=== PATIENT | female | born 1955 | race Asian ===

== ENCOUNTER 2016-10-25 06:28 | Day surgery (SDC) | payer OTHER ==
[2016-10-24 17:18] VITALS: BMI 21.6
[2016-10-25] VITALS (12 sets, daily range): BP systolic 111–146; BP diastolic 55–67; PULSE 70–94; RESP 17–18; Ht 160 cm; Wt 54.5 kg
[~2016-10-25] VITALS: Ht 160 cm; Wt 54.5 kg
[2016-10-25] MEDS ORDERED: CEFAZOLIN 1 GM INJ ONE (07:00)
--- NOTE | 2016-10-25 07:01 | RADRPT ---
PROCEDURE: Chest Radiograph. CLINICAL INDICATION: Preop. Right facial mass. TECHNIQUE: Single frontal chest radiograph. COMPARISON: None available FINDINGS: The cardiomediastinal silhouette is within normal limits. No infiltrate or effusion is seen. Th e bones are intact. IMPRESSION: 1. Unremarkable chest radiograph. RPTAT: HJ[facility] .Matt Vaughn MD, MD Date Time Electronically viewed and signed by .Matt Vaughn MD, on 10/25/2016 07:00 .B/
[2016-10-25] MEDS ORDERED: MIRT15TA PO (07:08)
[2016-10-25] MEDS ORDERED: DIPH25CA6 PO (07:08)
[2016-10-25] MEDS ORDERED: PALI1.5T IM (07:08)
[2016-10-25] MEDS ORDERED: PROP10TA6 PO (07:08)
--- NOTE | 2016-10-25 07:22 | HPN ---
Date/Time of Note Date/Time of Note DATE: 10/25/16 TIME: 07:22 Interval H&P Admission Note Pt. seen H&P reviewed: No system changes MARYAM URIOSTEGUI MD Oct 25, 2016 07:22
[2016-10-25] MEDS ORDERED: GELATIN SIZE 100 SPONGE ONE (07:34)
[2016-10-25] MEDS ORDERED: LIDOCAINE 1% (MPF) 30 ML INJ ONE (07:34)
[2016-10-25] MEDS ORDERED: HEPARIN 1000 UNITS/ML 10 ML INJ ONE (07:35)
[2016-10-25] MEDS ORDERED: THROMBIN 5000 UNIT VIAL ONE (07:35)
[2016-10-25] MEDS ORDERED: HEPARIN 1000 UNITS/ML 10 ML INJ IRR ONE (07:45)
[2016-10-25] MEDS ORDERED: LIDOCAINE 1% (MPF) 30 ML INJ INJ ONE (07:45)
[2016-10-25] MEDS ORDERED: ROPIVACAINE 0.5 % 30 ML VIAL ONE (07:52)
[2016-10-25] MEDS ORDERED: LIDOCAINE 2%/EPI 30 ML INJ ONE (07:52)
[2016-10-25] MEDS ORDERED: MIDAZOLAM 1 MG/ML 2 ML INJ ONE (07:53)
[2016-10-25] MEDS ORDERED: FENTAnyl 50 MCG/ML VIAL ONE (07:53)
[2016-10-25] MEDS ORDERED: MEPERIDINE 25 MG INJ IV PRN (09:00)
[2016-10-25] MEDS ORDERED: DIPHENHYDRAMINE 50 MG INJ IV PRN (09:00)
[2016-10-25] MEDS ORDERED: FENTAnyl 50 MCG/ML VIAL IV PRN (09:00)
[2016-10-25] MEDS ORDERED: ONDANSETRON 4 MG INJ IV PRN (09:00)
--- NOTE | 2016-10-25 09:04 | SIPON ---
Date/Time of Note Date/Time of Note DATE: 10/25/16 TIME: 09:03 Operative Report Preoperative Diagnosis ESRD Postoperative Diagnosis same Operation/Procedure Performed L arm brachiocepahlic AVF creation Anesthesia Type: other Estimated Blood Loss: minimal Transfusion Required: no Specimen: none Grafts/Implants: none Complications: no MARYAM URIOSTEGUI MD Oct 25, 2016 09:04
--- NOTE | 2016-10-25 13:36 | OPR ---
DATE OF OPERATION: 10/25/2016 PREOPERATIVE DIAGNOSIS: End-stage renal disease. POSTOPERATIVE DIAGNOSIS: End-stage renal disease. OPERATIVE PROCEDURE: Creation of left arm arteriovenous fistula. SURGEON: Jarad Campbell MD ANESTHESIA: Scalene block. ESTIMATED BLOOD LOSS: Minimal. COMPLICATIONS: There were no intraprocedural complications. INDICATIONS: This is a 60-year-old woman with end-stage renal disease on dialysis via a Perma-Cath. She is right handed. I brought her in today for creation of a left arm AV fistula. OPERATION PERFORMED: Patient was brought to the operating room, placed on the table in a supine position. The left arm was prepped and draped in the usual sterile fashion. After the block was placed by the anesthesiologist, I had already mapped the vein on the arm. It showed a good cephalic vein from the elbow up to the shoulder and a good brachial artery at the elbow. I made an incision across the antecubital crease. I carefully dissected out the cephalic vein down into the forearm where it divided. I ligated the 2 branches. I ligated them distally with surgical clips and divided them. I cut the septum between the 2 branches, creating a mcdowell at the end of the vein. I then cut the connective tissue overlying the brachial artery pulse. I clamped the brachial artery proximally and distally. It was a real soft artery; it went into spasm, quite a bit of spasm, but it was a good size before it spasmed. I made an 8 mm long anterior arteriotomy, then anastomosed the end of the vein to the side of the artery using 6-0 Prolene suture in a running standard vascular surgical fashion. I then removed the clamps. The vein dilated up nicely. There was a soft thrill. The hand was warm and pink. I looked at the fingers. Radial pulse was not palpable, but I could see a lot of spasm in the artery. There was good hemostasis. I closed the skin incision in 2 layers using an inner layer of 3-0 Vicryl and an outer layer of 4-0 Monocryl subcuticular suture. Sterile dressing was applied. The patient was then transferred to recovery room in stable condition. She tolerated the procedure well without any complications. Dictated By: Jarad Campbell MD /roberto/[facility] /Document#: [id number]
--- NOTE | 2016-10-25 17:13 | RADRPT ---
Vent Rate: 70 bpm RR Interval: 0 msec HI Interval: 182 msec QRS Duration: 78 msec QT Interval: 444 msec QTC Interval: 479 msec P-R-T Buckley: 61 - 65 - 75 degrees Normal sinus rhythm RSR apos; orattern in V1 suggests right ventricular conduction delay Prolonged QT Abnormal ECG Electronically Signed By: Darian Tang [id number]
== END 2016-10-25 11:00 | disposition home or self-care (01) ==
LOC: SDS 06:28
PROVIDERS: ATTEND Surgery Vascular Surgery
DX: I12.0 Hypertensive chronic kidney disease with stage 5 chronic kidney disease or end stage renal disease (principal); N18.6 End stage renal disease
CPT/HCPCS: 36821; 71010; 84132; 93005; J0690; J1644; J2250; J2795; J3010; Z7512; Z7610; C1725

== ENCOUNTER 2016-11-23 09:01 | Emergency (ER) | payer OTHER ==
[~2016-11-23] VITALS: Wt 54.0 kg
[~2016-11-23 09:01] MED LIST: DIPH25CA6 PO; MIRT15TA PO; PALI1.5T IM; PROP10TA6 PO
[2016-11-23] MEDS ORDERED: HYDROCODONE/APAP (5/325) TAB PO ONE (09:30)
--- NOTE | 2016-11-23 10:29 | ERD ---
ER Documentation Chief Complaint Date/Time DATE: 11/23/16 TIME: 10:27 Chief Complaint Left arm swelling HPI This is a 61-year-old who had a left AV shunt placed 1 month ago. Ever since it was placed the patient complained of numbness to her left middle and ring fingertips. She also has some diffuse aching sensation in her left forearm. She says that her hand has been slightly cool ever since then. They have followed up with her doctor who did the surgery he said everything is fine and this will take some time to heal. They are here today because she thinks her arm is swollen a little bit. No shortness of breath or chest pain ROS All systems reviewed and are negative except as per history of present illness. Medications Home Meds Reported Medications Aripiprazole* (Abilify*) 5 Mg Tab, 5 MG PO DAILY, #30 TAB 11/23/16 Diphenhydramine Hcl* (Diphenhydramine Hcl*) 25 Mg Capsule, 25 MG PO Q6 Y for ITCHING, CAP 10/25/16 Mirtazapine* (Remeron*) 15 Mg Tablet, 15 MG PO HS, TAB 10/25/16 Discontinued Reported Medications Propranolol Hcl* (Propranolol Hcl*) 10 Mg Tablet, 10 MG PO DAILY, TAB 10/25/16 Paliperidone (Invega) 1.5 Mg Tab.er.24, 78 MG IM q month, TAB 10/25/16 Allergies Allergies: Coded Allergies: No Known Allergy (Unverified , 11/23/16) PMhx/Soc History of Surgery: No Anesthesia Reaction: No Hx Neurological Disorder: No Hx Respiratory Disorders: No Hx Cardiac Disorders: No Hx Psychiatric Problems: Yes (SCHIZOPHRENIA) Hx Miscellaneous Medical Probl: No Hx Alcohol Use: No Hx Substance Use: No Hx Tobacco Use: No Smoking Status: Current every day smoker FmHx Family History: No coronary disease Physical Exam Vitals Vital Signs Date Time Temp Pulse Resp B/P Pulse Ox O2 Delivery O2 Flow Rate FiO2 11/23/16 09:08 98.1 72 18 135/64 99 Physical Exam Const: Well-developed, well-nourished Head: Atraumatic, normocephalic Eyes: Normal Conjunctiva, PERRLA, EOMI, normal sclera, no nystagmus ENT: Normal External Ears, Nose and Mouth, moist mucus membranes. Neck: Full range of motion. No meningismus, no lymphadenopathy. Resp: Clear to auscultation bilaterally, no wheezing, rhonchi, rales Cardio: Regular rate and rhythm, no murmurs, S1 S2 present Abd: Soft, non tender x 4, non distended. Normal bowel sounds, no guarding or rebound, no pulsitile abdominal masses or bruits Skin: No petechiae or rashes, no ecchymosis , no maculopapular rash Back: No midline or flank tenderness Ext: No cyanosis, or edema, FROM x 4, normal inspection, neurovascularly intact x 4, the left arm AV shunt has a palpable thrill there is no noticeable swelling, no erythema, digits are slightly cooler than the right hand, Refill less than 2 seconds in her left hand Neur: Awake and alert, STR 5/5 x 4, sensation intact x 4, no focal findings, cerebellum intact Psych: Normal Mood and Affect Results 24 hrs Current Medications Medications (Trade) Dose Ordered Sig/Sharona Route PRN Reason Start Time Stop Time Status Last Admin Dose Admin Acetaminophen/ Hydrocodone Bitart ([place] (5/325)) 1 tab ONCE ONCE PO 11/23/16 09:30 11/23/16 09:31 DC 11/23/16 09:43 Procedures/MDM PROCEDURE: Right upper extremity AV fistula ultrasound. CLINICAL INDICATION: Left upper extremity pain. Left upper extremity fistula. TECHNIQUE: Henriquez-scale and color Doppler images of a left upper extremity dialysis fistula were obtained. COMPARISON: None available FINDINGS: Patent left upper extremity dialysis fistula is identified. Velocities are as follows: Arterial anastomosis 202 cm/s Proximal fistula 423 cm/s Mid fistula 163 cm/s Mid - distal fistula 73 cm/s Distal outflow vein 147 cm/s Inflow artery 147 cm/s IMPRESSION: Patent left upper extremity dialysis fistula. Elevated velocity in the proximal fistula, possibly indicating stenosis. RPTAT: AA .Davey Randle MD, Date Time Electronically viewed and signed by .Davey Randle MD, MD on 11/23/2016 11:29 .P/ CC: GRACIELA CHEEMA DO Spoke with Dr. Porter of vascular surgery review the ultrasound. He said the patient to follow-up in the office on Friday Departure Diagnosis: Primary Impression: AV fistula stenosis Encounter type: initial encounter Qualified Code: T82.858A - Arteriovenous fistula stenosis, initial encounter Additional Impression: Postoperative pain Condition: Stable GRACIELA CHEEMA DO Nov 23, 2016 10:29
[2016-11-23] MEDS ORDERED: ARIP5TAB7 PO (11:26)
--- NOTE | 2016-11-23 11:29 | RADRPT ---
PROCEDURE: Right upper extremity AV fistula ultrasound. CLINICAL INDICATION: Left upper extremity pain. Left upper extremity fistula. TECHNIQUE: Henriquez-scale and color Doppler images of a left upper extremity dialysis fistula were obt ained. COMPARISON: None available FINDINGS: Patent left upper extremity dialysis fistula is identified. Velocities are as follows: Arterial anastomosis 202 cm/s Proximal fistula 423 cm/s Mid fistula 163 cm/s Mid - distal fistula 73 cm/s Distal outflow vein 147 cm/s Inflow artery 147 cm/s IMPRESSION: Patent left upper extremity dialysis fistula. Elevated velocity in the proximal fistula, possibly indicating stenosis. RPTAT: AA .Davey Randle MD, MD Date Time Electronically viewed and signed by .Davey Randle MD, MD on 11/23/2016 11:29 .P/
[2016-11-23] MEDS ORDERED: HYDR-906 PO (12:08)
[2016-11-23 12:21] VITALS: BP 149/70; PULSE 69; RESP 17; TEMP 97.8
== END 2016-11-23 12:22 | disposition home or self-care (01) ==
LOC: E/R 09:01
DX: T82.858A Stenosis of other vascular prosthetic devices, implants and grafts, initial encounter (principal); G89.18 Other acute postprocedural pain; F17.210 Nicotine dependence, cigarettes, uncomplicated; Y82.8 Other medical devices associated with adverse incidents
CPT/HCPCS: 93931; Z7502; Z7610; 99283

== ENCOUNTER 2017-01-27 07:41 | Day surgery (SDC) | payer OTHER ==
[~2017-01-27] VITALS: Ht 157.5 cm; Wt 50.1 kg
[~2017-01-27 07:41] MED LIST changes: +ARIP5TAB7 PO; +HYDR-906 PO; -PALI1.5T IM; -PROP10TA6 PO
[2017-01-27 08:18] VITALS: Ht 157.5 cm; Wt 50.1 kg
[2017-01-27 08:22] VITALS: BP 134/64; PULSE 79; RESP 16
--- NOTE | 2017-01-27 08:28 | HPN ---
Date/Time of Note Date/Time of Note DATE: 01/27/17 TIME: 08:28 Interval H&P Admission Note Pt. seen H&P reviewed: No system changes MARYAM URIOSTEGUI MD Jan 27, 2017 08:28
--- NOTE | 2017-01-27 09:31 | SIPON ---
Date/Time of Note Date/Time of Note DATE: 01/27/17 TIME: 09:30 Operative Report Preoperative Diagnosis L arm AVF non maturing Postoperative Diagnosis same Operation/Procedure Performed L arm AVF gram, PTV cephalic vein 6 x 100, coil embolization of large cephalic vein collateral (3 mm x 5 cm Tanja) Surgeon see signature line surgeon's assistant none Anesthesia: other Estimated blood loss: none Transfusion Required none Specimen none Grafts/Implants none Complications none MARYAM URIOSTEGUI MD Jan 27, 2017 09:31
[2017-01-27 09:45] VITALS: BP 140/68; PULSE 77; RESP 17
--- NOTE | 2017-01-27 10:42 | OPR ---
DATE OF OPERATION: 01/27/2017 PREOPERATIVE DIAGNOSIS: None maturing left arm arteriovenous fistula. POSTOPERATIVE DIAGNOSIS: None maturing left arm arteriovenous fistula. PROCEDURE PERFORMED 1. Left arm arteriovenous fistulogram with balloon venoplasty of the upper arm cephalic vein. 2. Coil embolization of large upper arm cephalic vein collateral for AV fistula maturation. SURGEON: Maryam Campbell MD ANESTHESIA: Local anesthesia. ESTIMATED BLOOD LOSS: Minimal. COMPLICATIONS: No intraprocedural complications. INDICATIONS: This is a 61-year-old woman. She has end-stage renal disease. She is nondiabetic. H as hypertension. She is not on dialysis but is getting very close to needing it. She has a left ar m AV fistula which I created several months ago. It has a good thrill but it just has not quite mat ure and it is not as easily palpated as I would like. I brought her in today for a fistulogram and possible intervention to help maturation. PROCEDURE: The patient was brought to the labor relations or personnel negotiator, placed on the table in supine position. Left a rm was prepped and draped in the usual sterile fashion. I began by using ultrasound to evaluate the fistula. It is a good size fistula to the upper arm and on ultrasound it looks like to be at least 4 to 5 mm and I did not see any stenosis at the arterial anastomosis on ultrasound. I did not use any contrast for this because she is not on dialysis yet so we used CO2 and ultrasound. So I used u ltrasound to identify the vein just above the elbow. I infiltrated over the vein using about 5 mL o f 1% Xylocaine. Used a micropuncture needle to enter the vein under ultrasound guidance and a 0.018 wire was inserted through the needle into the vein and the micropuncture sheath was advanced over t he wire into the vein. I then did an arteriovenous fistulogram. This identified that the fistula w as patent, there is a large collateral coming off the vein in the lower portion of the upper arm kenton t actually looks to be filling preferentially over the cephalic vein initially and the cephalic vein itself was patent all the way up and the cephalic arch appeared to have some stenosis just proximal to the cephalic arch actually in this cephalic vein. The central veins were patent with no signifi cant stenosis. There was collateralization around the distal cephalic vein, so I decided to do jose oplasty of the distal cephalic vein. So I advanced a 0.035 Glidewire up through the sheath and into the central veins. I exchanged the micropuncture sheath for a 6-Bulgarian sheath over the wire and th en used a 6 mm x 100 mm balloon to angioplasty the distal half of the fistula area where it looked l kelby it was narrowed and just for maturation purposes. Completion angiogram showed no residual steno sis, it looked like collaterals were filling slower. I also still saw a lot of preferential filling going into a fairly large collateral coming off the cephalic vein in the mid upper arm so I used a Glidewire and an 0.035 Kumpe catheter to engage this branch and I advanced the catheter up about 2 t o 3 cm out into the branch and then placed a 3 mm x 5 cm coil, there was good size and it looked lik e it will cause closure of this branch, it was in good position several centimeters from the origin. Completion fistulogram showed good flow through the fistula and really very sluggish flow into kenton t collateral now. I was happy with the result. I removed the catheter sheaths and wires and held p ressure on the puncture site until there was good hemostasis and she can be discharged home. She ca n start using the fistula as needed. Dictated By: MARYAM SCHUMACHER/MINA Conf#: [id number] DID#: [id number]
== END 2017-01-27 10:15 | disposition home or self-care (01) ==
LOC: SDS 07:41
PROVIDERS: ATTEND Surgery Vascular Surgery
DX: T82.898A Other specified complication of vascular prosthetic devices, implants and grafts, initial encounter (principal); Y84.1 Kidney dialysis as the cause of abnormal reaction of the patient, or of later complication, without mention of misadventure at the time of the procedure; Y92.89 Other specified places as the place of occurrence of the external cause; E11.9 Type 2 diabetes mellitus without complications
CPT/HCPCS: 36907; C1725; C1887; C1894; Z7610